=== PATIENT | female | born 1970 ===

== ENCOUNTER 2019-06-17 02:58 | Emergency (ER) | payer BC ==
[2019-06-17] MEDS ORDERED: NITROGLYCERIN SL TABS 0.4 MG TAB SUBLINGUAL STA (03:37)
[2019-06-17] MEDS ORDERED: SODIUM CHLORIDE 0.9% 500 ML 500 ML IV STA (03:37)
[2019-06-17] MEDS ORDERED: ONDANSETRON 4 MG/2 ML VIAL IVP STA (03:37)
[2019-06-17] MEDS ORDERED: ASPIRIN 81 MG PO STA (03:37)
[2019-06-17 03:52] LABS: Basophils % (A) 1 %; Eosinophils # (A) 0.3 k/uL (0-0.7); Eosinophils % (A) 4 %; HCT 42.3 % (34.0-46.0); HGB 14.1 gm/dL (11.4-16.0); Lymphocytes # (A) 2.6 k/uL (1.0-4.8); Lymphocytes % (A) 34 %; MCH 28.1 pg (25.0-35.0); MCHC 33.3 g/dL (31.0-37.0); MCV 84.5 fL (80.0-100.0); Mean Platelet Volume 6.5; Monocytes # (A) 0.4 k/uL (0-1.0); Monocytes % (A) 5 %; Neutrophils # (A) 4.1 k/uL (1.3-7.7); Neutrophils % (A) 55 %; Platelet Count 387 k/uL (150-450); RBC 5.01 m/uL (3.80-5.40); RDW 12.6 % (11.5-15.5); WBC 7.5 k/uL (3.8-10.6)
[2019-06-17 04:02] LABS: ALT 18 U/L (9-52); AST 22 U/L (14-36); African American GFR (CKD) >90 (>60 ml/min/1.73 sqM); Albumin 4.3 g/dL (3.5-5.0); Alkaline Phosphatase 90 U/L (38-126); Anion Gap 10 mmol/L; Blood Urea Nitrogen 15 mg/dL (7-17); Calcium 10.2 mg/dL (8.4-10.2); Carbon Dioxide 26 mmol/L (22-30); Chloride 103 mmol/L (98-107); Glucose 123 mg/dL (74-99); Potassium 3.8 mmol/L (3.5-5.1); Sodium 139 mmol/L (137-145); Total Bilirubin 0.2 mg/dL (0.2-1.3)
[2019-06-17 04:03] LABS: INR 0.9 (<1.2); Partial Thromboplastin Time 25.8 sec (22.0-30.0); Prothrombin Time 9.4 sec (9.0-12.0)
[2019-06-17] MEDS ORDERED: MORPHINE SULFATE 4 MG/ML SYRINGE IVP STA (04:18)
--- NOTE | 2019-06-17 04:28 | CT ---
EXAMINATION TYPE: CT chest angio for PE DATE OF EXAM: 06/17/2019 COMPARISON: None HISTORY: chest pain and back pain CT DLP: 453.3 mGycm Automated exposure control for dose reduction was used. CONTRAST: CT Chest for pulmonary embolism performed with with IV Contrast, patient injected with 70 mL of Isovu e 370. There are 3-D post processed images. FINDINGS: There is mild subsegmental atelectasis at the posterior lung bases. There is no pleural effusion. The re is no evidence of a pulmonary mass. The lungs are clear of consolidation. Thoracic aorta shows no aneurysm or dissection. Ascending aorta measures 3.2 cm. There is normal contrast opacification of the pulmonary arteries. There are no filling defects. The t horacic spine appears intact. There is no compression fracture. There are clips from cholecystectomy. There is small amount of air in the anterior biliary tree consistent with reflux. The bile ducts are not dilated. There is no sign of pneumoperitoneum. IMPRESSION: No evidence of pulmonary embolism. Minimal subsegmental atelectasis at the lung bases.
--- NOTE | 2019-06-17 04:49 | ED ---
Chest Pain HPI - General Chief Complaint: Chest Pain Stated Complaint: Chest Pain Time Seen by Provider: 06/17/19 03:10 Source: patient, family Mode of arrival: ambulatory Limitations: no limitations - History of Present Illness Initial Comments: 49-year-old female patient presents to the emergency department today for evaluation of upper back and chest pain. Patient states that she has been having intermittent episodes of this for the last 2-3 days. Patient states that she'll have episodes 2-3 times per day lasting a few minutes each time. Patient states when the episodes, and she does have difficulty breathing and nausea. She denies any sweats or dizziness. Patient denies any personal past history of cardiac disease, smoking, hypertension, or diabetes. She is unsure about her family history. She denies any leg pain or swelling. Denies any recent travel or use of hormonal medications. She denies any new medications. Denies any recent increase in physical activity. Patient denies any recent rash, fever, chills, cough, abdominal pain, diarrhea, constipation, numbness, tingling, dizziness, weakness, hematuria, dysuria, urinary urgency, urinary frequency, headache, visual changes, or any other complaints. - Related Data Previous Rx's Medication Instructions Recorded Cyclobenzaprine [Flexeril] 10 mg PO TID #15 tab 06/17/19 Ibuprofen [Motrin] 600 mg PO Q8HR PRN #30 tab 06/17/19 Allergies Allergy/AdvReac Type Severity Reaction Status Date / Time No Known Allergies Allergy Verified 06/17/19 03:06 Review of Systems ROS Statement: Those systems with pertinent positive or pertinent negative responses have been documented in the HPI. ROS Other: All systems not noted in ROS Statement are negative. EKG Findings - EKG Comments: EKG Findings:: EKG obtained at 12 01 shows normal sinus rhythm with a ventricular rate of 74, MN interval 174, QRS duration 82, QT 398, QTC 441. No evidence of ST elevation or depression. Past Medical History Past Medical History: No Reported History History of Any Multi-Drug Resistant Organisms: None Reported Past Surgical History: Cholecystectomy Past Psychological History: No Psychological Hx Reported Smoking Status: Never smoker Past Alcohol Use History: None Reported Past Drug Use History: None Reported General Exam Limitations: no limitations General appearance: alert, in no apparent distress, other (This is a well- developed, well-nourished adult female patient in no acute distress. Vital signs upon presentation are temperature 97.9F, pulse 73, respirations 20, blood pressure 131/73, pulse ox 98% on room air.) Eye exam: Present: normal appearance, PERRL, EOMI. Absent: scleral icterus, conjunctival injection, periorbital swelling ENT exam: Present: normal exam, normal oropharynx, mucous membranes moist Respiratory exam: Present: normal lung sounds bilaterally. Absent: respiratory distress, wheezes, rales, rhonchi, stridor, chest wall tenderness Cardiovascular Exam: Present: regular rate, normal rhythm, normal heart sounds. Absent: systolic murmur, diastolic murmur, rubs, gallop, clicks GI/Abdominal exam: Present: soft, normal bowel sounds. Absent: distended, tenderness, guarding, rebound, rigid Neurological exam: Present: alert, oriented X3, CN II-XII intact Psychiatric exam: Present: normal affect, normal mood Skin exam: Present: warm, dry, intact, normal color. 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 RADIOLOGY:CT angiography of the chest was obtained for PE. Report was reviewed in its entirety. Impression by Dr. Solorio showed no evidence of pulmonary embolism. Minimal subsegmental atelectasis at the lung bases. MDM: 49-year-old female patient with benign past medical history presents to the emergency department today for evaluation of chest and upper back pain. Physical examination is unremarkable. Patient is nonreproducible with palpation. Lungs are clear to auscultation with good air movement. EKG obtai itz showed normal sinus rhythm with no ST elevation or depression. Labs reviewed and were unremarkable. Troponin negative. CT angiography of the chest was obtained and showed no acute abnormalities. I did discuss findings and results with the patient. We did offer observation admission versus discharge. Patient requested to be discharged home. 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 We will treat for possible muscle spasm per her request. Return parameters were discussed in detail. She verbalizes understanding and agrees this plan. Disposition Clinical Impression: Chest pain, Back pain Disposition: HOME SELF-CARE Condition: Good Instructions (If sedation given, give patient instructions): Chest Pain (ED), Back Pain (ED) Additional Instructions: Take medications as directed. Follow up with cardiology outpatient, request stress test. Follow-up through primary care physician for recheck in 1-2 days. Return to the emergency department immediately for any new, worsening, or concerning symptoms per Prescriptions: Cyclobenzaprine [Flexeril] 10 mg PO TID #15 tab Ibuprofen [Motrin] 600 mg PO Q8HR PRN #30 tab PRN Reason: Pain Is patient prescribed a controlled substance at d/c from ED?: No Referrals: Ron Carroll MD [STAFF PHYSICIAN] - 1-2 days Time of Disposition: 04:49
[2019-06-17 05:04] VITALS: BP 99/67; PULSE 73; RESP 18; TEMP 98
== END 2019-06-17 05:06 | disposition home or self-care (01) ==
LOC: EC 02:58
DX: R07.9 Chest pain, unspecified (principal); M54.9 Dorsalgia, unspecified; R06.00 Dyspnea, unspecified; R11.0 Nausea; J98.11 Atelectasis
CPT/HCPCS: 36415; 93005; 80053; 83735; 84484; 85025; 85610; 85730; 71275; 99285; 96374; 96361; J2405; Q9967